=== PATIENT | male | born 1975 | race Asian ===

== ENCOUNTER → 2021-10-05 | Day surgery (SDC) | payer OTHER ==
[~2021-10-05] MED LIST: ACETAMINOPHEN500 M1 PO; COLACE100 MG PO; MOTRIN600 MG PO; OXY-IR 5MG5 MG PO
== END | disposition home or self-care (01) ==
LOC: FAS 06:57
DX: D17.0 Benign lipomatous neoplasm of skin and subcutaneous tissue of head, face and neck (principal)
CPT/HCPCS: J0690; J1100; J1644; J2250; J2405; J2704; J3010; J7120